=== PATIENT | male | born 1945 | race Caucasian/White ===

== ENCOUNTER 2017-10-08 08:41 | Inpatient (IN) | payer OTHER ==
[~2017-10-08] VITALS: Ht 162.6 cm; Wt 101.7 kg
[2017-10-08 09:08] LABS: BASOPHIL (%) 0.4 % (0-1); EOSINOPHIL (%) 0.6 % (0-5); EOSINOPHIL COUNT 0.1 K/uL (0-0.3); HEMATOCRIT 33.3 % (38.0-50.0); IMMATURE GRANULOCYTE (%) 0.5 % (0.0-0.7); LYMPHOCYTE (%) 6.8 % (15-42); LYMPHOCYTE COUNT 0.7 K/uL (1.0-2.8); MCH 31.7 PG (29.0-34.0); MCV 87.9 FL (86-99); MONOCYTE (%) 10.2 % (3-12); MONOCYTE COUNT 1.1 K/uL (0-0.8); NEUTROPHIL (%) 81.5 % (45-76); NEUTROPHIL COUNT 8.7 K/uL (1.8-6.4); PLATELET COUNT 131 K/uL (156-360); RBC DIS.WIDTH-SD 39.2 % (39-53); RED BLOOD COUNT 3.79 M/uL (4.00-5.50); WHITE BLOOD COUNT 10.7 K/uL (4.1-10.2)
[2017-10-08 09:16] LABS: INTER. NORMALIZED RATIO 1.1
[2017-10-08 09:19] LABS: CHLORIDE 92 mEq/L (99-109); POTASSIUM 4.6 mEq/L (3.7-5.4); PTT 28.2 SEC (25-37); SODIUM 127 mEq/L (136-147)
[2017-10-08 09:21] LABS: GLUCOSE 272 mg/dL (70-99)
[2017-10-08 09:25] LABS: CREATININE 1.3 mg/dL (0.6-1.3); GFR ESTIMATE (CALCULATED) 58 mL/min/ (58.99-99999)
[2017-10-08 09:26] LABS: UREA NITROGEN (BUN) 21 mg/dL (9-23)
[2017-10-08 09:31] LABS: TROP-I INTERPRETATION NEGATIVE; TROPONIN-I 0.05 ng/mL (0.0-0.30)
[2017-10-08] MEDS ORDERED: VALSARTAN-HCTZ1 EAC3 PO (15:10)
[2017-10-08] MEDS ORDERED: JANUMET XR 50-1 EAC1 PO (15:10)
[2017-10-08] MEDS ORDERED: CRESTOR20 MG PO (15:11)
[2017-10-08] MEDS ORDERED: CARVEDILOL12.5 MG PO (15:11)
[2017-10-08] MEDS ORDERED: VICTOZA0.6 MG/0.1 SC (15:11)
[2017-10-08] MEDS ORDERED: ACTOS30 MG PO (15:11)
[2017-10-08] MEDS ORDERED: ONE-A-DAY MEN'1 EAC1 PO (15:12)
[2017-10-08] MEDS ORDERED: LITE COAT ASPI325 M1 PO (15:12)
[2017-10-08] MEDS ORDERED: FISH OIL 1,2001 EAC4 PO (15:12)
[2017-10-08 15:51] LABS: TROP-I INTERPRETATION NEGATIVE; TROPONIN-I 0.03 ng/mL (0.0-0.30)
[2017-10-08 19:47] VITALS: BP 121/71
[2017-10-08 21:07] LABS: TROP-I INTERPRETATION NEGATIVE; TROPONIN-I 0.03 ng/mL (0.0-0.30)
[2017-10-09 00:07] VITALS: BP 120/74
[2017-10-09 02:59] VITALS: BP 116/63
[2017-10-09 05:43] LABS: HEMATOCRIT 28.9 % (38.0-50.0); HEMOGLOBIN 10.1 G/DL (12.5-16.6); MCH 30.8 PG (29.0-34.0); MCHC 34.9 G/DL (30.0-36.0); MCV 88.1 FL (86-99); PLATELET COUNT 129 K/uL (156-360); RBC DIS.WIDTH-CV 12.3 % (11.8-14.6); RBC DIS.WIDTH-SD 39.8 % (39-53); RED BLOOD COUNT 3.28 M/uL (4.00-5.50); WHITE BLOOD COUNT 9.9 K/uL (4.1-10.2)
[2017-10-09 06:32] LABS: CHLORIDE 93 MEQ/L (99-109); CREATININE 1.1 MG/DL (0.6-1.3); GFR ESTIMATE (CALCULATED) > 59 mL/min/ (58.99-99999); GLUCOSE 148 mg/dL (70-99); POTASSIUM 4.1 MEQ/L (3.7-5.4); SODIUM 129 MEQ/L (136-147); UREA NITROGEN (BUN) 20 mg/dL (9-23)
[2017-10-09 08:24] LABS: MAGNESIUM 1.7 mg/dl (1.3-2.7)
[2017-10-09 11:56] VITALS: BP 128/71
[2017-10-09 16:41] VITALS: BP 129/68
[2017-10-09 20:00] VITALS: BP 117/57
[2017-10-10] VITALS (7 sets, daily range): BP systolic 122–154; BP diastolic 64–80
[2017-10-10 06:18] LABS: BASOPHIL (%) 0.1 % (0-1); EOSINOPHIL (%) 0.1 % (0-5); HEMATOCRIT 26.6 % (38.0-50.0); HEMOGLOBIN 9.2 G/DL (12.5-16.6); IMMATURE GRANULOCYTE (%) 0.8 % (0.0-0.7); LYMPHOCYTE (%) 6.9 % (15-42); LYMPHOCYTE COUNT 0.7 K/uL (1.0-2.8); MCH 30.5 PG (29.0-34.0); MCHC 34.6 G/DL (30.0-36.0); MCV 88.1 FL (86-99); MONOCYTE (%) 9.1 % (3-12); MONOCYTE COUNT 0.9 K/uL (0-0.8); NEUTROPHIL COUNT 8.2 K/uL (1.8-6.4); PLATELET COUNT 147 K/uL (156-360); RBC DIS.WIDTH-CV 12.1 % (11.8-14.6); RED BLOOD COUNT 3.02 M/uL (4.00-5.50); WHITE BLOOD COUNT 9.9 K/uL (4.1-10.2)
[2017-10-10 06:32] LABS: CHLORIDE 96 MEQ/L (99-109); CREATININE 1.2 MG/DL (0.6-1.3); GFR ESTIMATE (CALCULATED) > 59 mL/min/ (58.99-99999); POTASSIUM 3.9 MEQ/L (3.7-5.4); SODIUM 129 MEQ/L (136-147); UREA NITROGEN (BUN) 22 mg/dL (9-23)
[2017-10-10 06:33] LABS: GLUCOSE 233 mg/dL (70-99)
[2017-10-10 10:11] LABS: STOOL OCCULT BLD 1ST SPECIMEN NEGATIVE
[2017-10-11 03:58] VITALS: BP 155/79
[2017-10-11 04:37] LABS: ALBUMIN 3.5 g/dL (3.2-4.8); CHLORIDE 99 mEq/L (99-109); POTASSIUM 4.2 mEq/L (3.7-5.4); SODIUM 133 mEq/L (136-147)
[2017-10-11 04:39] LABS: GLUCOSE 170 mg/dL (70-99); TOTAL PROTEIN 6.2 g/dL (6.4-8.3)
[2017-10-11 04:41] LABS: TOTAL BILIRUBIN 0.5 mg/dL (0.0-1.0)
[2017-10-11 04:43] LABS: ALKALINE PHOSPHATASE 219 IU/L (3-129); CREATININE 1.1 mg/dL (0.6-1.3); GFR ESTIMATE (CALCULATED) > 59 mL/min/ (58.99-99999)
[2017-10-11 04:44] LABS: AST (GOT) 78 IU/L (2-34); UREA NITROGEN (BUN) 23 mg/dL (9-23)
[2017-10-11 04:45] LABS: DIRECT BILIRUBIN 0.3 mg/dL (0.0-0.3)
[2017-10-11 04:46] LABS: ALT (GPT) 110 IU/L (3-49); URIC ACID 5.4 mg/dL (3.1-9.2)
[2017-10-11 06:53] VITALS: BP 147/85
[2017-10-11 07:39] VITALS: BP 144/70
[2017-10-11 08:37] LABS: HEMATOCRIT 28.7 % (38.0-50.0); HEMOGLOBIN 10.1 G/DL (12.5-16.6); MCH 31.7 PG (29.0-34.0); MCHC 35.2 G/DL (30.0-36.0); RBC DIS.WIDTH-CV 12.4 % (11.8-14.6); RBC DIS.WIDTH-SD 40.8 % (39-53); RED BLOOD COUNT 3.19 M/uL (4.00-5.50); WHITE BLOOD COUNT 10.7 K/uL (4.1-10.2)
[2017-10-11 08:58] LABS: PLATELET COUNT 193 K/uL (156-360)
[2017-10-11] MEDS ORDERED: LOPRESSOR25 MG PO (11:35)
[2017-10-11] MEDS ORDERED: CORDARONE200 MG PO (11:35)
[2017-10-11] MEDS ORDERED: ELIQUIS5 MG PO (11:37)
[2017-10-11] MEDS ORDERED: DIOVAN320 MG PO (11:38)
[2017-10-11] MEDS ORDERED: Colchicine,Colcrys PO (11:42)
[2017-10-11 12:06] VITALS: BP 139/77
== END 2017-10-11 15:20 | disposition home or self-care (01) | DRG 309 ==
LOC: EME 08:41 → 4EAST 12:21 → EDOF 12:21 → ENRESERV 12:22 → 4EAST 19:03
PROVIDERS: Emergency Medicine; Internal Medicine; Internal Medicine Cardiovascular Disease; Physician Assistant; Student in an Organized Health Care Education/Training Program
PROC: 5A2204Z Restoration of Cardiac Rhythm, Single (ICD-10-PCS; principal; 2017-10-09)
DX: I48.91 Unspecified atrial fibrillation (principal); E87.1 Hypo-osmolality and hyponatremia; I30.9 Acute pericarditis, unspecified; I48.92 Unspecified atrial flutter; I51.7 Cardiomegaly; E11.22 Type 2 diabetes mellitus with diabetic chronic kidney disease; J20.9 Acute bronchitis, unspecified; E78.5 Hyperlipidemia, unspecified; E83.51 Hypocalcemia; E86.0 Dehydration; E66.9 Obesity, unspecified; D69.6 Thrombocytopenia, unspecified; E11.65 Type 2 diabetes mellitus with hyperglycemia; E86.1 Hypovolemia; G47.33 Obstructive sleep apnea (adult) (pediatric); I12.9 Hypertensive chronic kidney disease with stage 1 through stage 4 chronic kidney disease, or unspecified chronic kidney disease; I95.9 Hypotension, unspecified; N18.3 Chronic kidney disease, stage 3 (moderate); R07.89 Other chest pain; R74.0 Nonspecific elevation of levels of transaminase and lactic acid dehydrogenase [LDH]; Z96.1 Presence of intraocular lens; Z79.82 Long term (current) use of aspirin; Z68.38 Body mass index [BMI] 38.0-38.9, adult; Z98.41 Cataract extraction status, right eye; Z98.42 Cataract extraction status, left eye; Z79.84 Long term (current) use of oral hypoglycemic drugs; Z79.51 Long term (current) use of inhaled steroids; Z82.49 Family history of ischemic heart disease and other diseases of the circulatory system
CPT/HCPCS: 71045; 71275; 80048; 80076; 82272; 82306; 82330; 82565; 82570; 82948; 83735; 83880; 83930; 83935; 84156; 84300; 84443; 84484; 84520; 84550; 85025; 85027; 85379; 85610; 85730; 87449; 87502; 93005; 93306; 93312; 93320; 93325; 93971; 99202; 99281; 99285; J0456; J0610; J1160; J1815; J2405; J3475; J7030; J7040; J7512